=== PATIENT | male | born 1995 ===

== ENCOUNTER 2024-12-15 15:34 | Emergency (ER) | payer SELFPAY ==
[2024-12-15 15:36] VITALS: BP 111/63; PULSE 58; RESP 18; O2SAT 100
--- NOTE | 2024-12-15 15:43 | ED.ABDPAIN ---
HPI - Abdominal Pain General Chief Complaint: Abdominal Pain <Mery Rahman PA-C - Last Filed: 12/15/24 15:45> Stated Complaint: n/v, abdominal pain <Mery Rahman PA-C - Last Filed: 12/15/24 15:45> Time Seen by Provider: 12/15/24 17:00 <Mery Rahman PA-C - Last Filed: 12/15/24 15:45> Focused HPI: 29-year-old male with reported history of pain nausea and vomiting presents to the emergency department for abdominal pain nausea and vomiting that started this morning. Patient states for the past 7 months he has dealing intermittent epigastric abdominal pain nausea vomiting. He states he has been to 5 different hospitals said several CT scans without any answers. He states he went to [facility] 3 months ago and had an endoscopy done at that time which reportedly was normal, systolic was diagnosed with a virus and given medications without improvement. He states the pain is in his left upper quadrant epigastrium. He states last night he had [employer] pizza which he thinks poisoned him. He denies fever, diarrhea, urinary. He does to smoking marijuana, he last smoked yesterday. GENERAL: Well-appearing, well-nourished, and in no acute distress. HEAD: Normocephalic, atraumatic. CHEST: Clear to auscultation. ?No respiratory distress. HEART: Regular rate and rhythm.? NEURO: ?Alert and oriented x3. Patient screened in triage and initial orders placed.? ?Additional care and disposition to be based upon?diagnostic testing and treatment. <LISE Carias Last Filed: 12/15/24 15:45> History of Present Illness HPI narrative: I agree with the assessment and documentation of Mery Rahman PA-C. <Kera Villanueva APRN - Last Filed: 12/15/24 19:42> Related Data Allergies/Adverse Reactions: Allergies Allergy/AdvReac Type Severity Reaction Status Date / Time No Known Allergies Allergy Verified 12/15/24 15:35 <LISE Carias Last Filed: 12/15/24 15:45> Review of Systems Review of Systems: All systems reviewed & are unremarkable except as noted in HPI and below <Keramadyson Villanueva, ELECTRIC BATH ATTENDANT - Last Filed: 12/15/24 19:42> Exam Narrative: GENERAL: Well appearing, well-nourished, non-toxic, in no acute distress. HEAD: Normocephalic, atraumatic. NECK: Supple. No adenopathy, no masses. RESPIRATORY: Airway patent, respirations nonlabored. Clear to auscultation bilaterally, no rales, rhonchi, wheezing. CARDIOVASCULAR: Regular rate and rhythm without murmurs, rubs, or gallops. Peripheral pulses 2+ and equal bilaterally. ABDOMINAL: Soft, nontender, nondistended, no hepatosplenomegaly. Normoactive BS. MUSCULOSKELETAL: Moves all extremities. Strength/ROM intact without gross deformities. SKIN: Warm, dry, normal color. No rashes. NEURO: A&O X3. Speech clear. Cranial nerves II-XII intact. No ataxic movements. PSYCHIATRIC: Appropriate mood and affect. Normal interaction. <Keramadyson Villanueva, ELECTRIC BATH ATTENDANT - Last Filed: 12/15/24 19:42> Course Vital Signs Vital signs: Vital Signs Pulse Rate 58 L 12/15/24 15:36 Respiratory Rate 18 12/15/24 15:36 Blood Pressure 111/63 12/15/24 15:36 Pulse Oximetry 100 12/15/24 15:36 Oxygen Delivery Room Air 12/15/24 15:36 Temperature 36.8 C 12/15/24 16:50 Pulse Rate 58 L 12/15/24 15:36 Respiratory Rate 18 12/15/24 15:36 Blood Pressure 111/63 12/15/24 15:36 Pulse Oximetry 100 12/15/24 15:36 Oxygen Delivery Room Air 12/15/24 15:36 <Mery Rahman PA-C - Last Filed: 12/15/24 15:45> Vital Signs Pulse Rate 58 L 12/15/24 15:36 Respiratory Rate 18 12/15/24 15:36 Blood Pressure 111/63 12/15/24 15:36 Pulse Oximetry 100 12/15/24 15:36 Oxygen Delivery Room Air 12/15/24 15:36 Temperature 36.8 C 12/15/24 16:50 Pulse Rate 58 L 12/15/24 15:36 Respiratory Rate 18 12/15/24 15:36 Blood Pressure 111/63 12/15/24 15:36 Pulse Oximetry 100 12/15/24 15:36 Oxygen Delivery Room Air 12/15/24 15:36 <Kera Villanueva APRN - Last Filed: 12/15/24 19:42> MDM - Abdominal Pain MDM Narrative Medical decision making narrative: 29-year-old male with reported history of pain nausea and vomiting presents to the emergency department for abdominal pain nausea and vomiting that started this morning. Patient states for the past 7 months he has dealing intermittent epigastric abdominal pain nausea vomiting. He states he has been to 5 different hospitals said several CT scans without any answers. He states he went to [facility] 3 months ago and had an endoscopy done at that time which reportedly was normal, systolic was diagnosed with a virus and given medications without improvement. He states the pain is in his left upper quadrant epigastrium. He states last night he had [employer] pizza which he thinks poisoned him. He denies fever, diarrhea, urinary. He does admit to smoking marijuana frequently, he last smoked yesterday. Labs Ordered: CBC, CMP, UA, lipase Imaging Ordered: None necessary (patient has had multiple CT abdominal scans in the past 7 months) Medications Ordered: 1 L normal saline IV bolus, Haldol IM, Zofran 4 mg, GI cocktail, Pepcid IV Results: Patient's CBC indicates white blood cell count of 11.8. His chemistry indicates that carbon dioxide of 21, anion gap of 13, glucose of 131, and total protein of 9.2. His urinalysis indicates pH of greater than 9, protein 1+, ketones 3+, and 3-5 rbcs. Diagnosis: Cannabinoid hyperemesis syndrome Patient Education/Shared MDM: Results of lab work shared with patient. They endorses improvement of symptoms following medication administration. Patient strongly advised to maintain hydration status upon discharge and follow-up with his PCP as soon as possible. He will be discharged home with a prescription for Reglan and capsaicin lotion. Strict return precautions provided. Patient verbalized understanding and is in agreement with plan. Vital signs stable at time of discharge. All questions answered. <Kera Villanueva APRN - Last Filed: 12/15/24 19:42> Differential Diagnosis Differential diagnosis: Likely abdominal pain, gastroenteritis and other (Mild dehydration, [place] oil hyperemesis syndrome, drug induced nausea/vomiting, gastroenteritis) <Kera Villanueva APRN - Last Filed: 12/15/24 19:42> Lab Data Attestation: I reviewed the patient's lab results. <Kera Villanueva APRN - Last Filed: 12/15/24 19:42> Result diagrams: 12/15/24 16:41 12/15/24 16:41 <Mery Rahman PA-C - Last Filed: 12/15/24 15:45> Labs: Lab Results 12/15/24 Range/Units 16:41 WBC 11.8 H (4.5-10.0) K/mm3 RBC 4.97 (4.6-6.20) M/mm3 Hgb 14.4 (14.0-18.0) g/dL Hct 43.0 (42.0-52.0) % MCV 86.5 (80-100) fl MCH 29.0 (26-34) pg MCHC 33.5 (32-36) g/dl RDW 13.2 (11.5-14.5) % Plt Count 304 (150-375) k/mm3 MPV 10.3 (7.4-10.4) fl Immature Gran % (Auto) 0.5 (0-0.5) % Neut % (Auto) 87.1 H (45.5-73.1) % Lymph % (Auto) 7.7 L (18.3-44.2) % [place] % (Auto) 4.3 (2.6-8.5) % Eos % (Auto) 0.1 (0-4.4) % Baso % (Auto) 0.3 (0.2-1.2) % Lymph # (Auto) 0.90 (0.9-3.2) K/mm3 [place] # (Auto) 0.5 (0.1-0.6) K/mm3 Eos # (Auto) 0.0 (0-0.3) K/mm3 Baso # (Auto) 0.0 (0.0-0.1) K/mm3 Abs Immat Gran (auto) 0.06 H (0.00-0.031) K/mm3 Absolute Neuts (auto) 10.2 H (1.3-6.7) K/mm3 Absolute Nucleated RBC 0.000 (0.0-0.012) K/mm3 Nucleated RBC % 0.0 (0.0-0.2) % Sodium 139 (137-145) mmol/L Potassium 4.2 (3.4-5.0) mmol/L Chloride 105 (98-107) mmol/L Carbon Dioxide 21 L (22-30) mmol/L Anion Gap 13 H (4-12) mmol/L BUN 10 (9-20) mg/dL Creatinine 0.89 (0.7-1.3) mg/dL Estim Creat Clear Calc 94 ml/min Estimated GFR > 60 (59 - ) Glucose 131 H (65-110) mg/dL Calcium 10.1 (8.4-10.2) mg/dL Total Bilirubin 0.8 (0.2-1.3) mg/dL AST 39 (17-59) U/L ALT 25 (6-50) U/L Alkaline Phosphatase 81 (38-126) U/L Total Protein 9.2 H (6.3-8.2) g/dL Albumin 5.0 (3.5-5.1) g/dL Lipase 57 (23-300) U/L Urine Color Yellow (Yellow) Urine Appearance Clear (Clear) Urine pH >=9.0 H (5.0-9.0) Ur Specific [place] 1.026 (1.001-1.035) Urine Protein 1+ H (Negative) mg/dL Urine Glucose (UA) Negative (Negative) mg/dL Urine Ketones 3+ H (Negative) mg/dL Ur Blood (Man) Negative (Negative) Urine Nitrate Negative (Negative) Urine Bilirubin Negative (Negative) Urine Urobilinogen 1.0 (<2.0) mg/dL Leukocyte Esterase Rfl Negative (Negative) EDIE/UL Urine RBC 3-5 H (0-2) /hpf Urine WBC 0-5 (0-3) /hpf Ur Squamous Epith Cells None seen (Few) /hpf Urine Bacteria None seen /hpf Urine Casts 0-2 <Mery Rahman PA-C - Last Filed: 12/15/24 15:45> Lab Results 12/15/24 Range/Units 16:41 WBC 11.8 H (4.5-10.0) K/mm3 RBC 4.97 (4.6-6.20) M/mm3 Hgb 14.4 (14.0-18.0) g/dL Hct 43.0 (42.0-52.0) % MCV 86.5 (80-100) fl MCH 29.0 (26-34) pg MCHC 33.5 (32-36) g/dl RDW 13.2 (11.5-14.5) % Plt Count 304 (150-375) k/mm3 MPV 10.3 (7.4-10.4) fl Immature Gran % (Auto) 0.5 (0-0.5) % Neut % (Auto) 87.1 H (45.5-73.1) % Lymph % (Auto) 7.7 L (18.3-44.2) % [place] % (Auto) 4.3 (2.6-8.5) % Eos % (Auto) 0.1 (0-4.4) % Baso % (Auto) 0.3 (0.2-1.2) % Lymph # (Auto) 0.90 (0.9-3.2) K/mm3 [place] # (Auto) 0.5 (0.1-0.6) K/mm3 Eos # (Auto) 0.0 (0-0.3) K/mm3 Baso # (Auto) 0.0 (0.0-0.1) K/mm3 Abs Immat Gran (auto) 0.06 H (0.00-0.031) K/mm3 Absolute Neuts (auto) 10.2 H (1.3-6.7) K/mm3 Absolute Nucleated RBC 0.000 (0.0-0.012) K/mm3 Nucleated RBC % 0.0 (0.0-0.2) % Sodium 139 (137-145) mmol/L Potassium 4.2 (3.4-5.0) mmol/L Chloride 105 (98-107) mmol/L Carbon Dioxide 21 L (22-30) mmol/L Anion Gap 13 H (4-12) mmol/L BUN 10 (9-20) mg/dL Creatinine 0.89 (0.7-1.3) mg/dL Estim Creat Clear Calc 94 ml/min Estimated GFR > 60 (59 - ) Glucose 131 H (65-110) mg/dL Calcium 10.1 (8.4-10.2) mg/dL Total Bilirubin 0.8 (0.2-1.3) mg/dL AST 39 (17-59) U/L ALT 25 (6-50) U/L Alkaline Phosphatase 81 (38-126) U/L Total Protein 9.2 H (6.3-8.2) g/dL Albumin 5.0 (3.5-5.1) g/dL Lipase 57 (23-300) U/L Urine Color Yellow (Yellow) Urine Appearance Clear (Clear) Urine pH >=9.0 H (5.0-9.0) Ur Specific [place] 1.026 (1.001-1.035) Urine Protein 1+ H (Negative) mg/dL Urine Glucose (UA) Negative (Negative) mg/dL Urine Ketones 3+ H (Negative) mg/dL Ur Blood (Man) Negative (Negative) Urine Nitrate Negative (Negative) Urine Bilirubin Negative (Negative) Urine Urobilinogen 1.0 (<2.0) mg/dL Leukocyte Esterase Rfl Negative (Negative) EDIE/UL Urine RBC 3-5 H (0-2) /hpf Urine WBC 0-5 (0-3) /hpf Ur Squamous Epith Cells None seen (Few) /hpf Urine Bacteria None seen /hpf Urine Casts 0-2 <Kera Villanueva APRN - Last Filed: 12/15/24 19:42> Discharge Plan Discharge Clinical Impression: Cannabinoid hyperemesis syndrome, Mild dehydration <Mery Rahman PA-C - Last Filed: 12/15/24 15:45> Patient Disposition: Home <Mery Rahman PA-C - Last Filed: 12/15/24 15:45> Condition: Stable <Mery Rahman PA-C - Last Filed: 12/15/24 15:45> Instructions: Antibiotic Form, Cannabis Use Disorder (ED) <Mery Rahman PA-C - Last Filed: 12/15/24 15:45> Additional Instructions: Please return to the ER with any worsening symptoms. Follow-up with primary care provider as soon as possible. You may take Reglan at home for nausea. If your symptoms return please take a hot shower and use capsaicin lotion on your abdomen. Please remember to drink lots of water. <Mery Rahman PA-C - Last Filed: 12/15/24 15:45> Patient Language: Georgian <Mery Rahman PA-C - Last Filed: 12/15/24 15:45> Prescriptions: New metoclopramide HCl [Reglan] 10 mg tablet 10 mg PO Q6H PRN (Reason: nausea and vomiting) Qty: 30 0RF capsaicin 0.1 % cream 1 applic topical TID Qty: 56.6 0RF Rx Instructions: do not wash area for at least 30 min after application <Mery Rahman PA-C - Last Filed: 12/15/24 15:45> Follow-up/Referrals: PHYSICIAN,SPORTS OFFICIAL [Primary Care Provider] - Franky Carranza MD [Physician] - (primary care provider) <Mery Rahman PA-C - Last Filed: 12/15/24 15:45> Time of Disposition: 19:42 <Mery Rahman PA-C - Last Filed: 12/15/24 15:45> 19:42 <Kera Villanueva APRN - Last Filed: 12/15/24 19:42>
[2024-12-15] MEDS: ONDANSETRON INJ 4 MG/2 ML VIAL IV PUSH (16:43)
[2024-12-15] MEDS: BELLADONNA ALK/PHENOB ELIX 10 ML, MAG HYDROX/ALUMINUM HYD/SIMETH 30 ML, LIDOCAINE 2% VI... PO (16:45)
[2024-12-15 16:50] VITALS: TEMP 36.8
[2024-12-15 16:54] LABS: Hematocrit 43.0 % (42.0-52.0); Hemoglobin 14.4 g/dL (14.0-18.0); Immature Granulocyte Percent A 0.5 % (0-0.5); Lymphocytes Absolute Auto 0.90 K/mm3 (0.9-3.2); Mean Corpuscular HGB Conc 33.5 g/dl (32-36); Mean Corpuscular Hemoglobin 29.0 pg (26-34); Mean Corpuscular Volume 86.5 fl (80-100); Nucleated Red Blood Cells Absolute Auto 0.000 K/mm3 (0.0-0.012); Nucleated Red Blood Cells Perc 0.0 % (0.0-0.2); Platelet Count Result 304 k/mm3 (150-375); Red Blood Count 4.97 M/mm3 (4.6-6.20); White Blood Count 11.8 K/mm3 (4.5-10.0)
[2024-12-15 17:00] LABS: Add Urine Microscopic? YES; Appearance Urine Clear (Clear); Glucose Urine UA Negative (Negative); Leukocyte Esterase Ur Negative LEU/UL (Negative); Nitrate Urine Negative (Negative); Non Pathogenic Casts 0-2; Specific Grav Ur 1.026 (1.001-1.035)
[2024-12-15 17:28] LABS: Alanine Aminotransferase 25 U/L (6-50); Albumin Level 5.0 g/dL (3.5-5.1); Alkaline Phosphatase 81 U/L (38-126); Anion Gap 13 mmol/L (4-12); Aspartate Amino Transferase 39 U/L (17-59); Bilirubin,Total 0.8 mg/dL (0.2-1.3); Blood Urea Nitrogen 10 mg/dL (9-20); Calcium 10.1 mg/dL (8.4-10.2); Carbon Dioxide 21 mmol/L (22-30); Chloride 105 mmol/L (98-107); Estimated CRCL calculation 94 ml/min; Estimated Glomerular Filt Rate > 60; Glucose 131 mg/dL (65-110); Lipase 57 U/L (23-300); Potassium 4.2 mmol/L (3.4-5.0); Sodium 139 mmol/L (137-145); Total Protein 9.2 g/dL (6.3-8.2)
[2024-12-15] MEDS: SODIUM CHLORIDE 0.9% IV 1,000 ML 999 ML IV CONT (17:30)
[2024-12-15] MEDS: FAMOTIDINE 20 MG/2 ML VIAL IV PUSH (17:30)
[2024-12-15] MEDS: HALOPERIDOL LACTATE 5 MG/ML VIAL IM (17:31)
--- OUTSIDE RECORDS SUMMARY | 2024-12-15 19:51 | XMS_ITS | Continuity of Care Document ---
Author Organization [facility] Address [address] [place] [address] Phone Care Team Providers Care Butcher Supervisor Name Role Phone Unavailable Unavailable Unavailable Advance Directives Directive Yes / No Effective Date File Name No Information Encounters Encounter Description Practice Location Reason(s) For Visit Diagnoses Date Provider Providers Copied on Encounter [facility] , [address], [place], [place], [id number], tel:[phone] [place] No Information 0 No Information [facility] , [address], [place], [place], [id number], tel:[phone] Historic Immunization Location No Information 1200 9 No Information Family History Family Member Type Diagnosis Age At Onset No Information Immunizations Vaccine Date Status Comments DTAP VACCINE < 7 YR IM administered [facility] e: New Immunization Record MEASLES, MUMPS AND RUBELLA VIRUS VACCINE (MMR), LIVE, FOR SUBCUTANEOUS USE administered Source: New Immuniza tion Record Payers Payer name Insurance type Covered republican ID Authoriza tion(s) No Information Social History Type Description Quantity Date Captured Comments Sex Male Smoking Status No Information Chief Complaint And Reason For Visit No Information Reason For Referral Reason For Referral No Information History Of Present Illness Encounter Date Complaint History Of Prese nt Illness No Information Functional Status Date Functional Assessmen t No Information Instructions Date Instruction Additional Infor mation No Information Assessments Type Assessment Date No Information Patient Care Teams Name Effective Dates (start - stop) Status Members No Information
== END 2024-12-15 20:35 | disposition home or self-care (01) ==
LOC: ANHED 19:50
PROVIDERS: Physician Assistant; Emergency Provider Registered Nurse
DX: R11.2 Nausea with vomiting, unspecified (principal); F12.90 Cannabis use, unspecified, uncomplicated; E86.0 Dehydration
CPT/HCPCS: 36415; 80053; 81001; 83690; 85025; 96361; 96372; 96374; 96375; 99284; A9270; J1630; J2405; J7030

== ENCOUNTER 2025-02-15 13:05 | Emergency (ER) | payer SELFPAY ==
--- NOTE | ~2025-02-15 | CT_ITS ---
Exam: CT abdomen and pelvis with contrast Clinical History: [Left lower quadrant pain ] Comparison: [ None available] Technique: Multiple axial CT images of the abdomen and pelvis were obtained with IV contrast. Sagittal and coronal reformatted images were obtained. FINDINGS: Lung bases: [Clear ] Liver: [ No mass.] [ No intrahepatic biliary duct dilatation.] Gallbladder: [ No wall thickening or stones.] Common bile duct: [ Normal caliber.] [ No stones.] Spleen: [ Within normal limits.] Pancreas: [ No mass. No pancreatic fluid collection.] Adrenals: [ No masses.] Kidneys: [ No masses. No hydronephrosis.][ ] Lymph nodes: [ No adenopathy in the abdomen or pelvis.] Stomach, small bowel and colon: Thickening of the yang of the ascending colon. Differential includes incomplete bowel wall distention versus colitis. Moderate amount of stool. The appendix is borderline thickened. Moderate amount of stool. Peritoneum cavity: [ No mesenteric fat stranding or fluid.] Bladder: [ Unremarkable.] Osseous structures: [ No acute fracture or destructive lesion.] [ Multilevel degenerative change in the visualized spine.] Abdominal aorta: [ No aneurysm.] Additional findings: [ None of significance.] IMPRESSION: 1. Thickening of the yang of the ascending colon. Differential includes incomplete bowel wall distention versus colitis. 2. The appendix is borderline thickened. Acute appendicitis is possible in the appropriate clinical setting. Reviewed, dictated and finalized at location Q. IMPRESSION: 1. Thickening of the yang of the ascending colon. Differential includes incomp lete bowel wall distention versus colitis. 2. The appendix is borderline thickened. Acute appendicitis is possible in the appropriate clinical setting.
[2025-02-15 13:22] VITALS: BP 99/80; PULSE 66; RESP 20; TEMP 36.8; O2SAT 96
[2025-02-15] MEDS: ONDANSETRON INJ 4 MG/2 ML VIAL IV PUSH (15:15)
[2025-02-15] MEDS: SODIUM CHLORIDE 0.9% IV 1,000 ML 999 ML IV CONT (15:15)
[2025-02-15 15:19] LABS: Hematocrit 40.5 % (42.0-52.0); Hemoglobin 13.8 g/dL (14.0-18.0); Immature Granulocyte Percent A 0.4 % (0-0.5); Lymphocytes Absolute Auto 1.03 K/mm3 (0.9-3.2); Mean Corpuscular HGB Conc 34.1 g/dl (32-36); Mean Corpuscular Hemoglobin 28.8 pg (26-34); Mean Corpuscular Volume 84.4 fl (80-100); Nucleated Red Blood Cells Absolute Auto 0.000 K/mm3 (0.0-0.012); Nucleated Red Blood Cells Perc 0.0 % (0.0-0.2); Platelet Count Result 303 k/mm3 (150-375); Red Blood Count 4.80 M/mm3 (4.6-6.20); White Blood Count 10.0 K/mm3 (4.5-10.0)
[2025-02-15] MEDS: PANTOPRAZOLE SODIUM IV 40 MG VIAL IV PUSH (15:19)
[2025-02-15 15:20] VITALS: BP 123/66; PULSE 64; RESP 22; O2SAT 100
[2025-02-15 15:30] LABS: Alanine Aminotransferase 21 U/L (6-50); Albumin Level 4.7 g/dL (3.5-5.1); Alkaline Phosphatase 84 U/L (38-126); Anion Gap 9 mmol/L (4-12); Aspartate Amino Transferase 32 U/L (17-59); Bilirubin,Total 0.7 mg/dL (0.2-1.3); Blood Urea Nitrogen 12 mg/dL (9-20); Calcium 9.8 mg/dL (8.4-10.2); Carbon Dioxide 20 mmol/L (22-30); Chloride 104 mmol/L (98-107); Estimated CRCL calculation 117 ml/min; Estimated Glomerular Filt Rate > 60; Glucose 121 mg/dL (65-110); Lipase 69 U/L (23-300); Potassium 3.4 mmol/L (3.4-5.0); Sodium 133 mmol/L (137-145); Total Protein 8.7 g/dL (6.3-8.2)
[2025-02-15] MEDS: DICYCLOMINE HCL INJ 20 MG/2 ML VIAL IM (16:05)
[2025-02-15 16:15] LABS: Add Urine Microscopic? NO; Appearance Urine Clear (Clear); Glucose Urine UA Negative (Negative); Leukocyte Esterase Ur Negative LEU/UL (Negative); Nitrate Urine Negative (Negative); Specific Grav Ur 1.031 (1.001-1.035)
--- NOTE | 2025-02-15 17:31 | ED_ITS ---
HPI - Abdominal Pain General Chief Complaint: Abdominal Pain Stated Complaint: abd pain Time Seen by Provider: 02/15/25 14:20 History of Present Illness HPI narrative: Patient is a 29-year-old male who presents ER with crampy abdominal pain. Reports he has been having this issue currently for 8 months. Located on left side. He has had an EGD and [place]. He was told he has issues with H pylori. He was also diagnosed with hyperemesis related to marijuana use in the past. He has smoked some marijuana recently. No diarrhea. Will occasionally dry heave. No blood in stool. No alleviating factors at home. Related Data Allergies Allergy/AdvReac Type Severity Reaction Status Date / Time No Known Allergies Allergy Verified 12/15/24 15:35 Review of Systems 2 Review of Systems: All systems reviewed & are unremarkable except as noted in HPI and below Constitutional: Constitutional: Reports no additional constitutional complaints Cardiovascular: Cardiovascular: Reports no additional cardiovascular complaints Respiratory: Respiratory: Reports no additional respiratory complaints Gastrointestinal: Gastrointestinal: Reports no additional gastrointestinal complaints Musculoskeletal: Musculoskeletal: Reports no additional musculoskeletal complaints Exam 2 Narrative: GENERAL: Anxious-appearing, well-nourished, and in no acute distress. HEAD: Normocephalic, atraumatic. ENT: Mucous membranes moist. CHEST: Clear to auscultation. No respiratory distress. HEART: Regular rate and rhythm. Normal peripheral pulses. ABDOMEN: Soft, nontender, nondistended. EXTREMITIES: Normal range of motion. No edema. SKIN: Warm, dry, no rash. NEURO: Alert and oriented x3. PSYCH: Normal mood and affect. Course Course Emergency Course: Patient re-evaluated abdomen is soft nontender. There is specifically no right lower quadrant abdominal pain. I do not feel this is the appropriate clinical setting for appendicitis. He has had recurrent abdominal issues. He thinks it may be related to H pylori because the pain is more in the left upper quadrant. Will treat him for colitis at home and give him GI follow-up. Vital Signs Vital signs: Vital Signs Temperature 98.2 F 02/15/25 13:22 Pulse Rate 66 02/15/25 13:22 Respiratory Rate 20 02/15/25 13:22 Blood Pressure 99/80 L 02/15/25 13:22 Pulse Oximetry 96 02/15/25 13:22 Temperature 98.2 F 02/15/25 13:22 Pulse Rate 64 02/15/25 15:20 Respiratory Rate 22 H 02/15/25 15:20 Blood Pressure 123/66 02/15/25 15:20 Pulse Oximetry 100 02/15/25 15:20 MDM - Abdominal Pain Lab Data 02/15/25 15:13 02/15/25 15:13 Labs: Lab Results 02/15/25 02/15/25 Range/Units 15:13 16:07 WBC 10.0 (4.5-10.0) K/mm3 RBC 4.80 (4.6-6.20) M/mm3 Hgb 13.8 L (14.0-18.0) g/dL Hct 40.5 L (42.0-52.0) % MCV 84.4 (80-100) fl MCH 28.8 (26-34) pg MCHC 34.1 (32-36) g/dl RDW 13.6 (11.5-14.5) % Plt Count 303 (150-375) k/mm3 MPV 10.1 (7.4-10.4) fl Immature Gran % (Auto) 0.4 (0-0.5) % Neut % (Auto) 83.0 H (45.5-73.1) % Lymph % (Auto) 10.3 L (18.3-44.2) % [place] % (Auto) 5.8 (2.6-8.5) % Eos % (Auto) 0.1 (0-4.4) % Baso % (Auto) 0.4 (0.2-1.2) % Lymph # (Auto) 1.03 (0.9-3.2) K/mm3 [place] # (Auto) 0.6 (0.1-0.6) K/mm3 Eos # (Auto) 0.0 (0-0.3) K/mm3 Baso # (Auto) 0.0 (0.0-0.1) K/mm3 Abs Immat Gran (auto) 0.04 H (0.00-0.031) K/mm3 Absolute Neuts (auto) 8.3 H (1.3-6.7) K/mm3 Absolute Nucleated RBC 0.000 (0.0-0.012) K/mm3 Nucleated RBC % 0.0 (0.0-0.2) % Sodium 133 L (137-145) mmol/L Potassium 3.4 (3.4-5.0) mmol/L Chloride 104 (98-107) mmol/L Carbon Dioxide 20 L (22-30) mmol/L Anion Gap 9 (4-12) mmol/L BUN 12 (9-20) mg/dL Creatinine 0.84 (0.7-1.3) mg/dL Estim Creat Clear Calc 117 ml/min Estimated GFR > 60 (59 - ) Glucose 121 H (65-110) mg/dL Calcium 9.8 (8.4-10.2) mg/dL Total Bilirubin 0.7 (0.2-1.3) mg/dL AST 32 (17-59) U/L ALT 21 (6-50) U/L Alkaline Phosphatase 84 (38-126) U/L Total Protein 8.7 H (6.3-8.2) g/dL Albumin 4.7 (3.5-5.1) g/dL Lipase 69 (23-300) U/L Urine Color Yellow (Yellow) Urine Appearance Clear (Clear) Urine pH 8.5 (5.0-9.0) Ur Specific [place] 1.031 (1.001-1.035) Urine Protein Negative (Negative) mg/dL Urine Glucose (UA) Negative (Negative) mg/dL Urine Ketones 2+ H (Negative) mg/dL Ur Blood (Man) Negative (Negative) Urine Nitrate Negative (Negative) Urine Bilirubin Negative (Negative) Urine Urobilinogen 0.2 (<2.0) mg/dL Leukocyte Esterase Rfl Negative (Negative) EDIE/UL Imaging Data Radiologist's impression: ITS Impressions Abdomen/Pelvis CT 02/15/25 16:04 IMPRESSION: 1. Thickening of the yang of the ascending colon. Differential includes incomplete bowel wall distention versus colitis. 2. The appendix is borderline thickened. Acute appendicitis is possible in the appropriate clinical setting. Discharge Plan Discharge Clinical Impression: Colitis Patient Disposition: Home Condition: Stable Instructions: Antibiotic Form, Colitis (ED) Additional Instructions: Return to the emergency department if you develop severe abdominal pain, severe nausea and vomiting to the point where you are unable to keep down fluids, if you develop chest pain or difficulty breathing, blood in your stool, dizziness or fainting, or if you develop any other new or concerning symptoms as these could be signs of more serious medical illness. Try to stay well hydrated. Patient Language: Maori Prescriptions: New dicyclomine 20 mg tablet 20 mg PO QID Qty: 20 0RF ondansetron 4 mg tablet,disintegrating 4 mg PO Q6H PRN (Reason: nausea and vomiting) Qty: 10 0RF amoxicillin-pot clavulanate 875-125 mg tablet 1 tablet PO Q12H Qty: 20 0RF pantoprazole [Protonix] 20 mg tablet,delayed release (DR/EC) 20 mg PO HS 28 Days Qty: 28 0RF No Action metoclopramide HCl [Reglan] 10 mg tablet 10 mg PO Q6H PRN (Reason: nausea and vomiting) Qty: 30 0RF capsaicin 0.1 % cream 1 applic topical TID Qty: 56.6 0RF Rx Instructions: do not wash area for at least 30 min after application Follow-up/Referrals: PHYSICIAN,ASSOCIATE MERCHANDISE PLANNER [Primary Care Provider, Internal Medicine] Je Yousif MD [Physician, Gastroenterology] - 1 Week
[2025-02-15] MEDS: ACETAMINOPHEN 500 MG TABLET 1000 MG PO (17:54)
== END 2025-02-15 17:54 | disposition home or self-care (01) ==
PROVIDERS: Emergency Provider Emergency Medicine
DX: K52.9 Noninfective gastroenteritis and colitis, unspecified (principal)
CPT/HCPCS: 36415; 74177; 80053; 81003; 83690; 85025; 96361; 96372; 96374; 96375; 99284; A9270; J0500; J2405; J2470; J7030; Q9967